=== PATIENT | female | born 2000 | race African-American/Black ===

== ENCOUNTER 2023-01-06 18:58 | Emergency (ER) | payer SELFPAY ==
[2023-01-06] MEDS ORDERED: Ketorolac 30 MG/ML SDV IVPUSH ONE (19:30)
[2023-01-06] MEDS ORDERED: Sodium Chloride 0.9% 1,000 ML IV ONE (19:30)
[2023-01-06 20:07] LABS: BASOPHILS ABSOLUTE AUTO 0.06 K/uL (0.00-0.20); BASOPHILS PERCENT AUTO 0.8 % (0.0-1.0); EOSINOPHILS ABSOLUTE AUTO 0.41 K/uL (0.00-0.45); EOSINOPHILS PERCENT AUTO 5.6 % (0.0-6.0); HEMATOCRIT 41.6 % (37.0-47.0); HEMOGLOBIN 14.3 g/dL (12.0-16.0); IMMATURE GRAN ABSOLUTE AUTO 0.01 K/uL (0.00-0.05); IMMATURE GRAN PERCENT AUTO 0.1 % (0.0-0.4); LYMPHOCYTES PERCENT AUTO 45.4 % (24.0-44.0); MEAN CORPUSCULAR HEMOGLOBIN 29.7 pg (28.0-32.0); MEAN CORPUSCULAR HGB CONC 34.4 g/dL (32.0-36.0); MEAN CORPUSCULAR VOLUME 86.5 fL (83.0-99.0); MEAN PLATELET VOLUME 10.2 fL (9.4-12.3); MONOCYTES ABSOLUTE AUTO 0.42 K/uL (0.00-0.80); MONOCYTES PERCENT AUTO 5.8 % (0.0-8.0); NEUTROPHILS ABSOLUTE AUTO 3.07 K/uL (1.80-7.70); NEUTROPHILS PERCENT AUTO 42.3 % (41.0-71.0); PLATELET COUNT,PLT 329 K/uL (150-400); RED BLOOD CELL COUNT 4.81 M/uL (4.10-5.30); WHITE BLOOD CELL COUNT,WBC 7.27 K/uL (3.9-11.3)
[2023-01-06 20:30] LABS: A/G RATIO 0.8 (0.9-1.6); ALANINE AMINOTRANSFERASE,ALT 21 IU/L (14-63); ALBUMIN 3.5 g/dL (3.4-5.0); ALKALINE PHOSPHATASE 90 U/L (46-116); ASPARTATE AMNIOTRANSFERASE,AST 11 IU/L (15-37); BILIRUBIN TOTAL 0.2 mg/dL (0.2-1.0); BLOOD UREA NITROGEN,BUN 12 mg/dL (7.0-18.0); CALCIUM 8.4 mg/dL (8.5-10.1); CARBON DIOXIDE,CO2 27.1 mmol/L (21.0-32.0); CHLORIDE,CL 104 mmol/L (98-107); CREATININE 0.9 mg/dL (0.6-1.0); GLUCOSE RANDOM 112 mg/dL (74-106); POTASSIUM,K 4.1 mmol/L (3.5-5.1); PROTEIN TOTAL,TP 7.8 g/dL (6.4-8.2); SODIUM,NA 137 mmol/L (136-145)
[2023-01-06 20:32] LABS: ESTIMATED GFR 93 mL/min (>60)
== END 2023-01-06 21:10 | disposition home or self-care (01) ==
LOC: MW.ED 18:58
DX: N93.8 Other specified abnormal uterine and vaginal bleeding (principal); M25.552 Pain in left hip
CPT/HCPCS: 36415; 73502; 80053; 84703; 85025; 96361; 96374; 99283; J1885; J7030; 99284

== ENCOUNTER 2023-01-31 18:07 | Emergency (ER) | payer SELFPAY ==
[2023-01-31] MEDS ORDERED: Ibuprofen 800 MG Tab PO ONE (20:14)
== END 2023-01-31 22:20 | disposition home or self-care (01) ==
LOC: MW.ED 18:07
DX: M25.551 Pain in right hip (principal)
CPT/HCPCS: 73502; 81025; 99283; A9270

== ENCOUNTER 2023-06-04 20:10 | Emergency (ER) | payer OTHER ==
[2023-06-04] MEDS: Orphenadrine 60 MG/2 ML Inj IM ONE (23:22)
[2023-06-04] MEDS: Lidocaine 4% 1 each Patch TOP STA (23:22)
[2023-06-04] MEDS: Ketorolac 30 MG/ML SDV IVPUSH ONE (23:23)
[2023-06-04] MEDS: Ketorolac 30 MG/ML SDV IM ONE (23:23)
== END 2023-06-04 23:46 | disposition home or self-care (01) ==
LOC: MW.ED 20:10
DX: M25.551 Pain in right hip (principal); Z75.8 Other problems related to medical facilities and other health care
CPT/HCPCS: 73502; 73552; 81025; 96372; 99283; A9270; J1885; J2360; 99284

== ENCOUNTER 2023-11-18 15:25 | Emergency (ER) | payer OTHER ==
[2023-11-18] MEDS: traMADol 50 MG Tab PO STA (15:54)
== END 2023-11-18 18:30 | disposition home or self-care (01) ==
LOC: MW.ED 15:25
DX: M25.551 Pain in right hip (principal); Z79.899 Other long term (current) drug therapy; Z75.8 Other problems related to medical facilities and other health care
CPT/HCPCS: 73502; 99283; A9270

== ENCOUNTER 2024-05-26 07:16 | Emergency (ER) | payer OTHER ==
[2024-05-26] MEDS: Albuterol/Ipratropium 3.0-0.5 MG/3 ML Neb Soln NEB ONE (08:02)
[2024-05-26] MEDS: predniSONE 20 MG Tab PO ONE (08:02)
== END 2024-05-26 09:10 | disposition home or self-care (01) ==
LOC: MW.ED 07:16
DX: J40 Bronchitis, not specified as acute or chronic (principal); F17.210 Nicotine dependence, cigarettes, uncomplicated; Z79.899 Other long term (current) drug therapy
CPT/HCPCS: 71045; 87428; 93005; 99285; A9270; J7620

== ENCOUNTER 2024-05-26 20:18 | Observation (INO) | payer OTHER ==
[2024-05-26] MEDS: Magnesium Sulf/Wat 2 GM/50 mL 2 GM in Premix Bag 1 BAG IV ONE (20:49)
[2024-05-26] MEDS: Sodium Chloride 0.9% 1,000 ML IV ONE (20:49)
[2024-05-26] MEDS: methylPREDNISolone Sodium Succinate 125 MG/2 ML SDV IVPUSH ONE (20:53)
[2024-05-26] MEDS: Albuterol/Ipratropium 3.0-0.5 MG/3 ML Neb Soln NEB ONE (21:27)
[2024-05-26 21:37] LABS: BASOPHILS ABSOLUTE AUTO 0.04 K/uL (0.00-0.20); BASOPHILS PERCENT AUTO 0.3 % (0.0-1.0); EOSINOPHILS ABSOLUTE AUTO 0.05 K/uL (0.00-0.45); EOSINOPHILS PERCENT AUTO 0.4 % (0.0-6.0); HEMATOCRIT 38.3 % (37.0-47.0); HEMOGLOBIN 12.4 g/dL (12.0-16.0); IMMATURE GRAN ABSOLUTE AUTO 0.07 K/uL (0.00-0.05); IMMATURE GRAN PERCENT AUTO 0.6 % (0.0-0.4); LYMPHOCYTES ABSOLUTE AUTO 2.76 K/uL (1.00-4.80); MEAN CORPUSCULAR HEMOGLOBIN 28.8 pg (28.0-32.0); MEAN CORPUSCULAR HGB CONC 32.4 g/dL (32.0-36.0); MEAN CORPUSCULAR VOLUME 88.9 fL (83.0-99.0); MONOCYTES ABSOLUTE AUTO 0.85 K/uL (0.00-0.80); MONOCYTES PERCENT AUTO 6.8 % (0.0-8.0); NEUTROPHILS ABSOLUTE AUTO 8.77 K/uL (1.80-7.70); NEUTROPHILS PERCENT AUTO 69.9 % (41.0-71.0); NRBC ABSOLUTE 0.03 K/uL (0.00-0.02); NRBC PERCENT 0.2 /100WBC (0.0-0.2); PLATELET COUNT,PLT 320 K/uL (150-400); RED BLOOD CELL COUNT 4.31 M/uL (4.10-5.30); WHITE BLOOD CELL COUNT,WBC 12.54 K/uL (3.9-11.3)
[2024-05-26 21:39] LABS: CORONAVIRUS COVID-19 NAA NEGATIVE (NEGATIVE); INFLUENZA A NAA NEGATIVE (NEGATIVE); INFLUENZA B NAA NEGATIVE (NEGATIVE); RESPIRATORY SYNCYTIAL VIR NAA NEGATIVE (NEGATIVE)
[2024-05-26 21:59] LABS: A/G RATIO 0.8 (0.9-1.6); ALBUMIN 3.3 g/dL (3.4-5.0); BILIRUBIN TOTAL 0.3 mg/dL (0.2-1.0); CALCIUM 8.4 mg/dL (8.5-10.1); CARBON DIOXIDE,CO2 23.3 mmol/L (21.0-32.0); EST CRCL DRUG DOSING (CG) 71.76 mL/min; MAGNESIUM 2.2 mg/dL (1.8-2.4); PROTEIN TOTAL,TP 7.4 g/dL (6.4-8.2)
[2024-05-26] MEDS: Potassium Chloride 20 MEQ Tab.ER PO ONE (23:02)
[2024-05-26] MEDS ORDERED: Ondansetron 4 MG/2 ML SDV IVPUSH PRN (23:05)
[2024-05-26] MEDS ORDERED: Melatonin 3 MG Tab PO PRN (23:05)
[2024-05-26] MEDS ORDERED: 50% Dextrose in Water 50 ML Syringe IVPUSH PRN (23:47)
[2024-05-26] MEDS ORDERED: Glucagon,Human Recombinant 1 MG Vial IM PRN (23:47)
[2024-05-26] MEDS: Albuterol 0.083% 2.5 MG/3 ML Neb Soln NEB PRN (23:57)
[2024-05-27] MEDS: Sodium Chloride 0.9% 1,000 ML IV SCH (00:13)
[2024-05-27] MEDS: cefTRIAXone 1 GM in Sodium Chloride 0.9% 50 ML IV SCH (00:16)
[2024-05-27] MEDS: Potassium Chloride 20 MEQ Tab.ER PO ONE (01:48)
[2024-05-27] MEDS: Albuterol/Ipratropium 3.0-0.5 MG/3 ML Neb Soln NEB SCH (01:48)
[2024-05-27 05:50] LABS: BASOPHILS ABSOLUTE AUTO 0.03 K/uL (0.00-0.20); BASOPHILS PERCENT AUTO 0.2 % (0.0-1.0); HEMOGLOBIN 12.1 g/dL (12.0-16.0); IMMATURE GRAN ABSOLUTE AUTO 0.14 K/uL (0.00-0.05); IMMATURE GRAN PERCENT AUTO 0.8 % (0.0-0.4); LYMPHOCYTES ABSOLUTE AUTO 1.91 K/uL (1.00-4.80); LYMPHOCYTES PERCENT AUTO 10.6 % (24.0-44.0); MEAN CORPUSCULAR HEMOGLOBIN 28.7 pg (28.0-32.0); MEAN CORPUSCULAR HGB CONC 33.6 g/dL (32.0-36.0); MEAN CORPUSCULAR VOLUME 85.5 fL (83.0-99.0); MEAN PLATELET VOLUME 10.3 fL (9.4-12.3); MONOCYTES PERCENT AUTO 3.3 % (0.0-8.0); NEUTROPHILS ABSOLUTE AUTO 15.36 K/uL (1.80-7.70); NEUTROPHILS PERCENT AUTO 85.1 % (41.0-71.0); PLATELET COUNT,PLT 351 K/uL (150-400); RED BLOOD CELL COUNT 4.21 M/uL (4.10-5.30); WHITE BLOOD CELL COUNT,WBC 18.04 K/uL (3.9-11.3)
[2024-05-27 06:14] LABS: CALCIUM 8.9 mg/dL (8.5-10.1); CARBON DIOXIDE,CO2 21.4 mmol/L (21.0-32.0); CREATININE 1.2 mg/dL (0.6-1.0); EST CRCL DRUG DOSING (CG) 62.42 mL/min; MAGNESIUM 1.6 mg/dL (1.8-2.4); PHOSPHORUS 1.8 mg/dL (2.6-4.7); POTASSIUM,K 4.7 mmol/L (3.5-5.1)
[2024-05-27] MEDS: Magnesium Sulf/Wat 2 GM/50 mL 2 GM in Premix Bag 1 BAG IV ONE (08:34)
[2024-05-27] MEDS: Insulin Aspart 100 Units/ML 3 ML Pen SUBCUT SCH (08:35)
[2024-05-27] MEDS: Iopamidol 755 MG/ML 500 ML Multipack Bottle IVPUSH STA (11:13)
[2024-05-27] MEDS: Phosphorus #1 250 MG Tab PO SCH (12:49)
[2024-05-27] MEDS: Azithromycin 500 MG in Sodium Chloride 0.9% 250 ML IV SCH (16:36)
[2024-05-27] MEDS: Acetaminophen 325 MG Tab PO PRN (20:33)
[2024-05-27] MEDS: Fluticasone NASAL Spray 16 GM Bottle NASBOTH SCH (22:30)
[2024-05-27] MEDS: guaiFENesin 600 MG Tab.ER PO SCH (22:30)
[2024-05-28 05:07] LABS: BORDETELLA PARAPERT IS1001 Not Detected (Not Detected)
== END 2024-05-28 13:25 | disposition home or self-care (01) ==
LOC: MW.ED 20:18 → MW.MS 22:12
PROVIDERS: ADMIT Family Medicine; ATTEND Family Medicine
DX: J45.901 Unspecified asthma with (acute) exacerbation (principal); R06.02 Shortness of breath; F17.210 Nicotine dependence, cigarettes, uncomplicated; Z79.84 Long term (current) use of oral hypoglycemic drugs; Z79.899 Other long term (current) drug therapy; Z20.822 Contact with and (suspected) exposure to COVID-19
CPT/HCPCS: 0241U; 36415; 71275; 80048; 80053; 82947; 83735; 84100; 85025; 87486; 87581; 87633; 94640; A9270; J0456; J0696; J1815; J3475; J3490; J7030; J7050; J7620; Q9967

== ENCOUNTER 2024-06-18 01:45 | Emergency (ER) | payer OTHER ==
[2024-06-18 03:13] LABS: BASOPHILS ABSOLUTE AUTO 0.04 K/uL (0.00-0.20); BASOPHILS PERCENT AUTO 0.5 % (0.0-1.0); EOSINOPHILS ABSOLUTE AUTO 0.25 K/uL (0.00-0.45); EOSINOPHILS PERCENT AUTO 3.4 % (0.0-6.0); HEMATOCRIT 39.3 % (37.0-47.0); HEMOGLOBIN 13.5 g/dL (12.0-16.0); IMMATURE GRAN ABSOLUTE AUTO 0.03 K/uL (0.00-0.05); IMMATURE GRAN PERCENT AUTO 0.4 % (0.0-0.4); LYMPHOCYTES ABSOLUTE AUTO 2.04 K/uL (1.00-4.80); LYMPHOCYTES PERCENT AUTO 27.9 % (24.0-44.0); MEAN CORPUSCULAR HEMOGLOBIN 29.3 pg (28.0-32.0); MEAN CORPUSCULAR HGB CONC 34.4 g/dL (32.0-36.0); MEAN CORPUSCULAR VOLUME 85.2 fL (83.0-99.0); MEAN PLATELET VOLUME 9.9 fL (9.4-12.3); MONOCYTES ABSOLUTE AUTO 0.63 K/uL (0.00-0.80); MONOCYTES PERCENT AUTO 8.6 % (0.0-8.0); NEUTROPHILS ABSOLUTE AUTO 4.33 K/uL (1.80-7.70); NEUTROPHILS PERCENT AUTO 59.2 % (41.0-71.0); PLATELET COUNT,PLT 307 K/uL (150-400); RED BLOOD CELL COUNT 4.61 M/uL (4.10-5.30); WHITE BLOOD CELL COUNT,WBC 7.32 K/uL (3.9-11.3)
[2024-06-18] MEDS: Albuterol/Ipratropium 3.0-0.5 MG/3 ML Neb Soln NEB ONE (03:18)
[2024-06-18] MEDS: Sodium Chloride 0.9% 1,000 ML IV ONE (03:18)
[2024-06-18] MEDS: cefTRIAXone 2 GM in Sodium Chloride 0.9% 50 ML IV ONE (03:18)
[2024-06-18] MEDS: Ketorolac 30 MG/ML SDV IVPUSH ONE (03:19)
[2024-06-18] MEDS: predniSONE 20 MG Tab PO ONE (03:19)
[2024-06-18 03:34] LABS: A/G RATIO 0.9 (0.9-1.6); ALBUMIN 3.8 g/dL (3.4-5.0); BILIRUBIN DIRECT 0.1 mg/dL (0.0-0.5); BILIRUBIN INDIRECT 0.2; BILIRUBIN TOTAL 0.3 mg/dL (0.2-1.0); CARBON DIOXIDE,CO2 26.7 mmol/L (21.0-32.0); CREATININE 0.9 mg/dL (0.6-1.0); EST CRCL DRUG DOSING (CG) 79.73 mL/min; POTASSIUM,K 3.8 mmol/L (3.5-5.1); PROTEIN TOTAL,TP 7.8 g/dL (6.4-8.2)
[2024-06-18] MEDS: Iopamidol 755 MG/ML 500 ML Multipack Bottle IVPUSH ONE (04:17)
== END 2024-06-18 05:11 | disposition home or self-care (01) ==
LOC: MW.ED 01:45
DX: J06.9 Acute upper respiratory infection, unspecified (principal); E11.9 Type 2 diabetes mellitus without complications; Z75.8 Other problems related to medical facilities and other health care; Z79.84 Long term (current) use of oral hypoglycemic drugs; Z79.899 Other long term (current) drug therapy; Z79.51 Long term (current) use of inhaled steroids
CPT/HCPCS: 36415; 71045; 71275; 80048; 80076; 83605; 84484; 85025; 85379; 87040; 87428; 93005; 96361; 96365; 96375; 99284; A9270; J0696; J1885; J7030; J7620; Q9967; 93010